=== PATIENT | female | born 1985 | race Caucasian/White ===

== ENCOUNTER 2020-04-18 07:48 | Emergency (ER) | payer MEDICAID ==
[~2020-04-18] VITALS: Ht 157.5 cm; Wt 81.8 kg
[2020-04-18] MEDS ORDERED: orphenadrine citrate 60mg/2ml inj. IM ONE (09:15)
[2020-04-18] MEDS ORDERED: ketorolac trometh inj. 60 MG/2 ML VIAL IM ONE (09:15)
[2020-04-18] MEDS ORDERED: HYDROcodone/acetaminophen 10/325mg tab PO ONE (09:15)
[2020-04-18] MEDS ORDERED: HYDR-4353 PO (09:31)
[2020-04-18] MEDS ORDERED: ORPH100T2 PO (09:31)
[2020-04-18] MEDS ORDERED: IBUP-1986 PO (09:31)
[2020-04-18 09:40] VITALS: BP 133/89
== END 2020-04-18 09:42 | disposition home or self-care (01) ==
LOC: ER 07:49
DX: S13.4XXA Sprain of ligaments of cervical spine, initial encounter (principal); S29.012A Strain of muscle and tendon of back wall of thorax, initial encounter; R51 Headache; V87.7XXA Person injured in collision between other specified motor vehicles (traffic), initial encounter; Y93.89 Activity, other specified; Y92.89 Other specified places as the place of occurrence of the external cause; Y99.8 Other external cause status
CPT/HCPCS: 96372; 99284; J1885; J2360

== ENCOUNTER 2020-04-21 17:34 | Emergency (ER) | payer MEDICAID ==
[~2020-04-21] VITALS: Ht 157.5 cm; Wt 85.0 kg
[~2020-04-21 17:34] MED LIST: HYDR-4353 PO; IBUP-1986 PO; ORPH100T2 PO
[2020-04-21 17:35] VITALS: BP 150/90
== END 2020-04-21 20:09 | disposition left against medical advice (07) ==
LOC: ER 17:35
DX: M54.2 Cervicalgia (principal); Z53.21 Procedure and treatment not carried out due to patient leaving prior to being seen by health care provider